=== PATIENT | female | born 1960 ===

== ENCOUNTER 2017-03-06 09:24 | Emergency (ER) | payer OTHER ==
[2017-03-06 09:27] VITALS: BP 152/90; PULSE 90; RESP 20; TEMP 98.2; O2SAT 98
--- NOTE | 2017-03-06 09:59 | RAD ---
PROCEDURE: Radiographs of the Right Shoulder HISTORY: R shoulder pain x 4 days, decreased ROM COMPARISON: No prior. FINDINGS: BONES: No fracture. Bordering the humeral tuberosities, rest flocculent calcification ossification and calcific tendinopathy is favored. Calcific bursitis is another consideration. Thoracic spondylosis JOINTS: Glenohumeral and acromioclavicular joints preserved. 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 OTHER FINDINGS: Right cervical rib IMPRESSION: Calcific rotator cuff tendinopathy (versus calcific bursitis ). Right cervical rib Thoracic spondylosis
--- NOTE | 2017-03-06 10:30 | C.PDOC ---
History Of Present Illness 56 y/o F p/w R shoulder pain x 4 days. Woke up with pain, worse with movement, sharp, nonradiating. Denies fever, procedure, numbness, weakness. Time Seen by Provider: 03/06/17 09:32 Chief Complaint (Nursing): Upper Extremity Problem/Injury Past Medical History Vital Signs: Last Vital Signs Temp 98.2 F 03/06/17 09:26 Pulse 90 03/06/17 09:26 Resp 20 03/06/17 09:26 BP 152/90 H 03/06/17 09:26 Pulse Ox 98 03/06/17 09:26 - Medical History PMH: HTN Family History: States: No Known Family Hx - Social History Hx Alcohol Use: No Hx Substance Use: No - Immunization History Hx Tetanus Toxoid Vaccination: No Hx Influenza Vaccination: No Review Of Systems Except As Marked, All Systems Reviewed And Found Negative. Constitutional: Negative for: Fever Respiratory: Negative for: Shortness of Breath Physical Exam - Physical Exam Appears: No Acute Distress Skin: No Rash Extremity: No Normal ROM (limited secondary to pain), Tenderness (to R anterior shoulder), Capillary Refill (<2 seconds), No Deformity (no asymmetry), Swelling (mild to R shoulder) Pulses: Right Radial: Normal Neurological/Psych: Normal Motor, Normal Sensation ED Course And Treatment O2 Sat by Pulse Oximetry: 98 Disposition - Disposition Referrals: Elena Valle MD [Staff Provider] - Disposition: HOME/ ROUTINE Disposition Time: 10:32 Condition: STABLE Additional Instructions: PROCEDURE: Radiographs of the Right Shoulder HISTORY: R shoulder pain x 4 days, decreased ROM COMPARISON: No prior. FINDINGS: BONES: No fracture. Bordering the humeral tuberosities, rest flocculent calcification ossification and calcific tendinopathy is favored. Calcific bursitis is another consideration. Thoracic spondylosis JOINTS: Glenohumeral and acromioclavicular joints preserved. 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 OTHER FINDINGS: Right cervical rib IMPRESSION: Calcific rotator cuff tendinopathy (versus calcific bursitis ). Right cervical rib Thoracic spondylosis Prescriptions: Ibuprofen [Motrin] 1 tab PO Q6 #30 tab Instructions: Calcific Tendinitis (ED), Shoulder Bursitis (ED) Forms: [employer] (Kazakh) - Clinical Impression Clinical Impression: Shoulder pain
== END 2017-03-06 10:46 | disposition home or self-care (01) ==
LOC: C.ER 09:24
DX: M25.511 Pain in right shoulder (principal)
CPT/HCPCS: 73030; 96372; 99283; J1885

== ENCOUNTER 2018-03-11 10:04 | Emergency (ER) | payer SELFPAY ==
[2018-03-11 10:08] VITALS: BMI 33.2
[2018-03-11 10:10] VITALS: BP 117/77; PULSE 93; RESP 16; TEMP 98.3; O2SAT 97
[2018-03-11] MEDS ORDERED: Naproxen 550 mg Tab PO STA (10:27)
--- NOTE | 2018-03-11 10:35 | C.PDOC ---
History Of Present Illness 57 y/o female presents to the ER complaining of left sided lateral neck pain which has been present for the past 3 days. Patient states that the pain is worse with movement. Patient reports that she took 1 Advil without relief yesterday. Denies having direct trauma, sore throat, fever, and chills. Time Seen by Provider: 03/11/18 10:10 Chief Complaint (Nursing): Upper Extremity Problem/Injury History Per: Patient History/Exam Limitations: no limitations Onset/Duration Of Symptoms: Days Current Symptoms Are (Timing): Still Present Severity: Moderate Past Medical History Reviewed: Historical Data, Nursing Documentation, Vital Signs Vital Signs: Last Vital Signs Temp 98.3 F 03/11/18 10:08 Pulse 93 H 03/11/18 10:08 Resp 16 03/11/18 10:08 BP 117/77 03/11/18 10:08 Pulse Ox 97 03/11/18 13:00 - Medical History PMH: HTN Surgical History: No Surg Hx Family History: States: No Known Family Hx - Social History Hx Alcohol Use: No Hx Substance Use: No - Immunization History Hx Tetanus Toxoid Vaccination: No Hx Influenza Vaccination: No Review Of Systems Except As Marked, All Systems Reviewed And Found Negative. Constitutional: Negative for: Fever, Chills Musculoskeletal: Positive for: Neck Pain (left- sided lateral neck pain) Physical Exam - Physical Exam Appears: Other (mildly uncomfortable) Skin: Normal Color, Warm, Dry Head: Atraumatic, Normacephalic Eye(s): bilateral: Normal Inspection Nose: Normal Oral Mucosa: Moist Throat: Normal, No Erythema, No Exudate Neck: No Midline Cervical Tenderness, Supple, Other (tenderness to palpation to left lateral neck along trapezius muscle) Lymphatic: No Adenopathy (lymphadenopathy) Chest: Symmetrical Cardiovascular: Rhythm Regular Respiratory: Normal Breath Sounds, No Rales, No Rhonchi, No Wheezing Neurological/Psych: Oriented x3, Normal Speech ED Course And Treatment O2 Sat by Pulse Oximetry: 97 (RA) Pulse Ox Interpretation: Normal Progress Note: Patient treated with Naproxen PO and Flexeril PO. Patient has been discharged with prescriptions for Naproxen and Flexeril and instructed to follow up with PMD in 1-2 days. Disposition Counseled Patient/Family Regarding: Studies Performed, Diagnosis, Need For Followup, Rx Given - Disposition Referrals: [facility] [Outside] Disposition: HOME/ ROUTINE Disposition Time: 10:45 Condition: STABLE Additional Instructions: FOLLOW UP WITH YOUR DOCTOR/CLINIC IN 1-2 DAYS USE MEDICATIONS DIRECTED/NEEDED RETURN TO ER IF SYMPTOMS WORSEN SEGUIMIENTO CON ACEVES MDICO / CLJUSTINEA EN 1-2 DORADO USE MEDICAMENTOS SEGN LO DIRIGIDO / NECESARIO VOLVER A ER SI LOS SNTOMAS EMPEORAN Prescriptions: Cyclobenzaprine [Flexeril] 10 mg PO BID PRN #15 tab PRN Reason: Muscle Spasm Naproxen 375 mg PO BID PRN #20 tablet PRN Reason: pain Instructions: Torticollis (DC) Forms: [employer] (Kinyarwanda) Print Language: SENEGALESE - Clinical Impression Clinical Impression: Muscle spasm, Torticollis - Scribe Statement The provider has reviewed the documentation as recorded by the Kiya Sanchez Provider Attestation: All medical record entries made by the Raeanniblindsay were at my direction and personally dictated by me. I have reviewed the chart and agree that the record accurately reflects my personal performance of the history, physical exam, medical decision making, and the department course for this patient. I have also personally directed, reviewed, and agree with the discharge instructions and disposition.
[2018-03-11] MEDS ORDERED: Naproxen 550 mg Tab PO ONE (10:41)
== END 2018-03-11 10:42 | disposition home or self-care (01) ==
LOC: C.ER 10:04
DX: M43.6 Torticollis (principal); M62.838 Other muscle spasm